=== PATIENT | male | born 1985 | race Caucasian/White ===

== ENCOUNTER 2021-06-24 20:08 | Inpatient (IN) | payer SELFPAY ==
[~2021-06-24] VITALS: Ht 177.8 cm; Wt 75.0 kg
[2021-06-24] MEDS ORDERED: normal saline 1000ML IV soln IVB ONE (20:20)
[2021-06-24 20:40] LABS: BASOPHILS # (AUTO) 0.1 X10'3 (0-0.2); BASOPHILS % (AUTO) 1.4 % (0-1); EOSINOPHILS # (AUTO) 0.2 X10'3 (0-0.9); EOSINOPHILS % (AUTO) 2.1 % (0-6); HEMATOCRIT 44.6 % (42.0-52.0); HEMOGLOBIN 15.2 g/dl (14.0-17.9); LYMPHOCYTES # (AUTO) 1.2 X10'3 (1.1-4.8); LYMPHOCYTES % (AUTO) 15.7 % (21-51); MEAN CORPUSCULAR HEMOGLOBIN 30.4 PG (27.0-31.0); MEAN CORPUSCULAR HGB CONC 34.1 g/dL (33.0-36.5); MEAN CORPUSCULAR VOLUME 89.3 FL (78-98); MEAN PLATELET VOLUME 8.7 FL (7.4-10.4); MONOCYTES # (AUTO) 0.4 X10'3 (0-0.9); MONOCYTES % (AUTO) 4.9 % (2-12); NEUTROPHILS # (AUTO) 5.8 X10'3 (1.8-7.7); NEUTROPHILS % (AUTO) 75.9 % (42-75); PLATELET COUNT 271 X10'3 (140-440); RED CELL DISTRIBUTION WIDTH 14.9 % (11.5-14.5); WHITE BLOOD COUNT 7.7 X10'3 (4.5-11.0)
[2021-06-24 20:48] LABS: ALBUMIN 3.9 G/DL (3.4-5.0); ANION GAP 13 (8-16); BILIRUBIN,TOTAL 0.3 MG/DL (0.1-1.0); BLOOD UREA NITROGEN 17 MG/DL (7-18); BUN/CREATININE RATIO 17.3 (5.4-32.0); CALCIUM 8.1 MG/DL (8.5-10.1); CHLORIDE 106 MMOL/L (99-107); CREATININE 0.98 MG/DL (0.60-1.10); GLUCOSE 93 MG/DL (70-104); POTASSIUM 3.4 MMOL/L (3.5-5.1); SODIUM 142 MMOL/L (135-145); TOTAL CARBON DIOXIDE 22.7 MMOL/L (24-32); TOTAL PROTEIN 7.7 G/DL (6.4-8.2); eGFR 90 ML/MIN
[2021-06-24 20:49] LABS: ALANINE AMINOTRANSFERASE 25 U/L (12-78); ALKALINE PHOSPHATASE 74 IU/L (46-116); ASPARTATE AMINO TRANSFERASE 30 U/L (10-37)
[2021-06-24] MEDS ORDERED: temazepam 15mg capsule PO PRN (21:00)
[2021-06-24 21:52] LABS: CLARITY,URINE CLEAR (Clear); COLOR,URINE YELLOW (Yellow); GLUCOSE, URINE NEGATIVE (Neg); KETONES,URINE NEGATIVE (Neg); LEUKOCYTE ESTERASE ,URINE NEGATIVE (Neg); NITRITES, URINE NEGATIVE (Neg); OCCULT BLOOD,URINE NEGATIVE (Neg); PH,URINE 5.5 (4.8-8.0); PROTEIN,URINE NEGATIVE (Neg); UROBILINOGEN,URINE 0.2 E.U/dL (0.2-1.0)
[2021-06-24 21:53] LABS: UA COLLECTION TYPE STRAIGHT CATH
[2021-06-24 22:00] LABS: URINE AMPHETAMINE SCREEN POSITIVE (Neg); URINE BARBITUATE SCREEN NEGATIVE (Neg); URINE BENZODIAZEPINES SCREEN NEGATIVE (Neg); URINE CANNABINOID SCREEN POSITIVE (Neg); URINE COCAINE SCREEN NEGATIVE (Neg); URINE METHADONE SCREEN NEGATIVE (Neg); URINE OPIATE SCREEN NEGATIVE (Neg); URINE PHENCYCLIDINE SCREEN NEGATIVE (Neg)
[2021-06-24] MEDS ORDERED: naloxone 2mg/2ml inj IV STA (22:03)
[2021-06-24] MEDS ORDERED: mag hydrox/Alum hydrox/simeth 30ml oral suspension PO PRN (22:40)
[2021-06-24] MEDS ORDERED: morphine 2 MG/ML inj. syringe IV PRN (22:40)
[2021-06-24] MEDS ORDERED: potassium CL 10mEq/100ml bag 100 ML IV PRN (22:40)
[2021-06-24] MEDS ORDERED: diphenhydrAMINE 25mg capsule PO PRN (22:40)
[2021-06-24] MEDS ORDERED: HYDROcodone/acetaminophen 5mg/325mg tablet PO PRN (22:40)
[2021-06-24] MEDS ORDERED: magnesium 2GM in 50ml NS 50 ML IV PRN (22:40)
[2021-06-24] MEDS ORDERED: magnesium hydroxide 30ml (MOM) UD suspension PO PRN (22:40)
[2021-06-24] MEDS ORDERED: ondansetron/PF 4mg/2ml inj IV PRN (22:40)
[2021-06-24] MEDS ORDERED: diphenhydrAMINE 50 mg/ml inj IV PRN (22:40)
[2021-06-24] MEDS ORDERED: acetaminophen 325mg tablet PO PRN ×2 (22:40)
[2021-06-24] MEDS ORDERED: potassium Cl 20 mEq SR tablet PO PRN ×2 (22:40)
[2021-06-24] MEDS ORDERED: magnesium Cl slow-release 64mg tablet PO PRN (22:40)
[2021-06-24] MEDS ORDERED: magnesium 4gm in 100ml NS 100 ML IV PRN (22:40)
[2021-06-24] MEDS ORDERED: bisacodyl 10mg suppository rectal RC PRN (22:40)
[2021-06-24] MEDS: dextrose 5%-1/2 normal saline 1,000 ML IV SCH (22:40)
[2021-06-24] MEDS ORDERED: ondansetron 4mg rapidly disintigrating tab PO PRN (22:40)
[2021-06-24] MEDS ORDERED: LIDOcaine 2% 10ml TOPICAL JELLY (Urojet) TP ONE (22:50)
[2021-06-24 23:27] LABS: APTT 28 SECONDS (22-32); D-DIMER 0.27 MG/L FEU (0-0.50)
[2021-06-25 00:13] LABS: HEMOGLOBIN A1C 5.7 % (4.5-6.2)
[2021-06-25 00:16] LABS: MAGNESIUM 2.6 MG/DL (1.5-2.4); PHOSPHORUS 3.5 MG/DL (2.3-4.5)
[2021-06-25 00:38] LABS: LIPASE 106 U/L (73-393)
--- NOTE | 2021-06-25 01:30 | NUR ---
PT WOKE UP AND REFUSED NAJERA.
--- NOTE | 2021-06-25 03:00 | NUR ---
PT WOKE UP AND PULLED OFF ALL EQUIPMENT EXCEPT IV. WILL NOT ALLOW VS TO CONTINUE TO BE TAKEN. REFUSING.
--- NOTE | 2021-06-25 05:13 | NUR ---
STILL REFUSING VS.
[2021-06-25] MEDS ORDERED: thiamine 100mg/ml 2ml inj. IV SCH (08:00)
[2021-06-25] MEDS ORDERED: folic acid 1mg/0.2ml inj IV SCH (08:00)
[2021-06-25] MEDS ORDERED: K and/or MAG REPLACEMENT MC SCH (08:00)
[2021-06-25] MEDS ORDERED: heparin, porcine 5000 units/ml vial SQ SCH (08:00)
[2021-06-25] MEDS ORDERED: pantoprazole 40MG/NS 100ML BAG 100 ML IV SCH (08:00)
[2021-06-25] MEDS ORDERED: multivitamins, therapeutics tablet PO SCH (08:00)
[2021-06-25] MEDS ORDERED: docusate sod 100mg capsule PO SCH (08:00)
[2021-06-25] MEDS ORDERED: LORazepam 2 mg/ml vial IV PRN (08:05)
[2021-06-25] MEDS ORDERED: LORazepam 1 MG tablet PO PRN (08:05)
[2021-06-25 09:19] LABS: BASOPHILS # (AUTO) 0.1 X10'3 (0-0.2); BASOPHILS % (AUTO) 1.2 % (0-1); EOSINOPHILS # (AUTO) 0.3 X10'3 (0-0.9); EOSINOPHILS % (AUTO) 4.4 % (0-6); HEMATOCRIT 42.3 % (42.0-52.0); HEMOGLOBIN 14.2 g/dl (14.0-17.9); LYMPHOCYTES # (AUTO) 1.6 X10'3 (1.1-4.8); LYMPHOCYTES % (AUTO) 22.5 % (21-51); MEAN CORPUSCULAR HEMOGLOBIN 30.4 PG (27.0-31.0); MEAN CORPUSCULAR HGB CONC 33.7 g/dL (33.0-36.5); MEAN CORPUSCULAR VOLUME 90.3 FL (78-98); MEAN PLATELET VOLUME 8.7 FL (7.4-10.4); MONOCYTES # (AUTO) 0.4 X10'3 (0-0.9); MONOCYTES % (AUTO) 5.2 % (2-12); NEUTROPHILS # (AUTO) 4.7 X10'3 (1.8-7.7); NEUTROPHILS % (AUTO) 66.7 % (42-75); PLATELET COUNT 256 X10'3 (140-440); RED BLOOD COUNT 4.68 X10'6 (4.70-6.10); RED CELL DISTRIBUTION WIDTH 14.9 % (11.5-14.5)
[2021-06-25] MEDS: dextrose 5%-1/2 normal saline 1,000 ML IV SCH (09:21)
[2021-06-25 09:28] LABS: ALANINE AMINOTRANSFERASE 21 U/L (12-78); ALBUMIN 3.4 G/DL (3.4-5.0); ALBUMIN/GLOBULIN RATIO 0.9 (1.1-1.5); ALKALINE PHOSPHATASE 66 IU/L (46-116); ANION GAP 9 (8-16); ASPARTATE AMINO TRANSFERASE 21 U/L (10-37); BILIRUBIN,TOTAL 0.4 MG/DL (0.1-1.0); BLOOD UREA NITROGEN 14 MG/DL (7-18); BUN/CREATININE RATIO 17.5 (5.4-32.0); CALCIUM 7.7 MG/DL (8.5-10.1); CHLORIDE 109 MMOL/L (99-107); CHOL/HDL RATIO 2.7 (0.00-4.99); CHOLESTEROL 148 MG/DL (0-200); GLUCOSE 92 MG/DL (70-104); HDL CHOLESTEROL 54 MG/DL (35-60); LDL CHOLESTEROL 78 MG/DL (50-100); MAGNESIUM 2.3 MG/DL (1.5-2.4); POTASSIUM 4.2 MMOL/L (3.5-5.1); SODIUM 143 MMOL/L (135-145); TOTAL CARBON DIOXIDE 25.1 MMOL/L (24-32); TRIGLYCERIDES 80 MG/DL (20-135); eGFR > 90 ML/MIN
[2021-06-25 14:40] VITALS: BP 132/80
--- NOTE | 2021-06-25 14:55 | NUR ---
Patient arrived around 0245 on the floor and I introduced myself as his nurse. He allowed me to take his vitals and proceeded to tell me that he doesn't want to fake sick and stay in the hospital. Dr. Anderson was paged and informed of patient's decision. Charge nurse Darian also made aware of patient's decision. Patient was alert and oriented.
== END 2021-06-25 14:45 | disposition left against medical advice (07) | DRG 93 ==
LOC: ER 20:10 → EDBD 22:46 → ED HOLD 22:46 → PCU 3S 06-25 13:48
PROVIDERS: ADMIT Family Medicine; ATTEND Family Medicine
DX: G92.9 Unspecified toxic encephalopathy (principal); E83.41 Hypermagnesemia; Z20.822 Contact with and (suspected) exposure to COVID-19; F10.120 Alcohol abuse with intoxication, uncomplicated; Z53.29 Procedure and treatment not carried out because of patient's decision for other reasons; E86.1 Hypovolemia; E87.6 Hypokalemia; F12.129 Cannabis abuse with intoxication, unspecified; F15.129 Other stimulant abuse with intoxication, unspecified; G31.2 Degeneration of nervous system due to alcohol; Z71.51 Drug abuse counseling and surveillance of drug abuser; Z71.41 Alcohol abuse counseling and surveillance of alcoholic
CPT/HCPCS: 36415; 70450; 71045; 80053; 80061; 80305; 80320; 81003; 83036; 83690; 83735; 84100; 84443; 84484; 85025; 85379; 85610; 85730; 87635; 93005; 96374; 99285; C9803; G0378; J2310; J3490; J7030; J7042